=== PATIENT | male | born 1945 | race Caucasian/White ===

== ENCOUNTER 2021-12-02 13:34 | Outpatient (CLI) | payer MEDICARE, SELFPAY ==
--- NOTE | 2021-12-02 14:53 | ECG_ITS ---
Measurements Intervals [place] Rate: 65 P: 39 [place]: 176 QRS: -7 QRSD: 90 T: 50 QT: 374 QTc: 390 Interpretive Statements SINUS RHYTHM NO PREVIOUS ECG AVAILABLE FOR COMPARISON Electronically Signed On 12-02-2021 19:38:37 CDT by Suzanna Mcginnis M.D.
[2021-12-02 15:21] LABS: Basophils Absolute Auto 0.1 K/mm3 (0.0-0.1); Basophils Percent Auto 0.5 % (0.2-1.2); Eosinophils Absolute Auto 0.1 K/mm3 (0-0.3); Eosinophils Percent Auto 0.8 % (0-4.4); Hematocrit 48.5 % (42.0-52.0); Immature Granulocyte Absolute 0.05 K/mm3 (0.00-0.031); Immature Granulocyte Percent A 0.5 % (0-0.5); Lymphocytes Absolute Auto 1.37 K/mm3 (0.9-3.2); Lymphocytes Percent Auto 14.2 % (18.3-44.2); Mean Corpuscular Hemoglobin 28.8 pg (26-34); Mean Corpuscular Volume 87.2 fl (80-100); Mean Platelet Volume 9.2 fl (7.4-10.4); Monocytes Absolute Auto 0.7 K/mm3 (0.1-0.6); Monocytes Percent Auto 7.6 % (2.6-8.5); Neutrophils Absolute Auto 7.4 K/mm3 (1.3-6.7); Neutrophils Percent Auto 76.4 % (45.5-73.1); Platelet Count Result 211 k/mm3 (150-375); Red Blood Count 5.56 M/mm3 (4.6-6.20); White Blood Count 9.6 K/mm3 (4.5-10.0)
[2021-12-02 15:24] LABS: Appearance Urine Clear (Clear); Bilirubin Urine Negative (Negative); Blood Urine Negative (Negative); Color Urine Yellow (Yellow); Glucose Urine UA Negative (Negative); Ketones Urine Negative (Negative); Leukocyte Esterase Ur Negative LEU/UL (Negative); Nitrate Urine Negative (Negative); Protein Urine Negative (Negative); Specific Grav Ur 1.025 (1.001-1.035); Urobilinogen Urine 0.2 mg/dL (<2.0); pH Urine 5.5 (5.0-9.0)
[2021-12-02 15:25] LABS: Albumin Level 4.6 g/dL (3.5-5.1); Anion Gap 4 mmol/L (8-16); Blood Urea Nitrogen 15 mg/dL (9-20); Calcium 9.1 mg/dL (8.4-10.2); Carbon Dioxide 28 mmol/L (22-30); Chloride 105 mmol/L (98-107); Estimated Glomerular Filt Rate > 60; Glucose 120 mg/dL (65-110); Potassium 3.6 mmol/L (3.4-5.0); Sodium 137 mmol/L (137-145)
[2021-12-02 15:28] LABS: Urine Cotinine NEGATIVE
[2021-12-02 15:29] LABS: Hemoglobin A1C 5.2 % (<5.7)
[2021-12-02 15:31] LABS: Mucus Urine Rare /lpf; RBC Urine 0-2 /hpf (0-2); Squamous Epithelial Cell Urine Rare /hpf (Few); WBC Urine 0-3 /hpf
[2021-12-02 15:40] LABS: Partial Thromboplastin Time 28.9 SECONDS (22.3-36.8)
[2021-12-02 15:42] LABS: Add Urine Microscopic? NO
== END 2021-12-02 13:35 | disposition home or self-care (01) ==
PROVIDERS: PCP Internal Medicine; Visit Provider Orthopaedic Surgery
DX: Z01.818 Encounter for other preprocedural examination (principal); M17.11 Unilateral primary osteoarthritis, right knee
CPT/HCPCS: 80048; 80307; 81003; 82040; 83036; 85025; 85610; 85730; 87081; 93005

== ENCOUNTER 2021-12-17 15:53 | Observation (INO) | payer MEDICARE, SELFPAY ==
[2021-12-02 14:00] VITALS: BMI 28.4
--- NOTE | 2021-12-02 14:19 | PC.NURSE ---
Report to the Outpatient Waiting Room, entrance under the green pavilion located off [facility], at time __9:30AM on date ___12/16/21____. OR Time: _11:30AM . - You and your visitor will be asked a series of questions to screen for COVID 19 for your protection. - Only one visitor is allowed at this time. - The patient visitor is requested to leave or wait in car when not with patient. - A mask is required within the hospital. Patients may have clear liquids (water, carbonated beverages, clear teas, apple juice) until 3 hours prior to surgery with a maximum of 20 ounces. - No food from midnight until time of surgery Take the following medications with a SIP of water the morning of surgery: NIFEDIPINE Medications to discontinue per physician __HOLD ASPIRIN AND ALL VITAMINS/SUPPLEMENTS 7 DAYS PRE-OP- LAST DOSE 12/09/21 NO make-up, nail bermudian, hairspray, perfume, deodorant, or body powder the day of surgery. No jewelry (including any body piercings) or valuables the day of surgery, leave them at home. Please take a shower or bath the night before, or the morning of, surgery with an antibacterial soap. Wear comfortable, loose fitting clothing. Children are encouraged to wear pajamas. - Jewelry must be removed prior to entering the operating room. Rings and piercings that are not removed may be cut off. - The hospital will not accept responsibility for valuables. - Please leave all valuables, including medications, at home the day of surgery. HIBICLENS SHOWER 3 DAILY FOR 3 DAYS PRIOR TO SURGERY. If you are going home after surgery, a licensed vibratory pile driver must drive you home. - NO public transportation without another adult. - We recommend that an adult stay with you for 24 hours following discharge. - We also recommend that you do not drive, make important decision, drink alcoholic beverages, or take any drugs that were not prescribed by your health care provider for at least 24 hours after your discharge time. Follow any additional instructions given to you from your surgeon. If you or anyone in your household have experienced Covid symptoms in the past week, please notify your surgeon or the nurse liaison at the phone number below for possible testing. Telephone instructions given to ___PATIENT and asked if any additional questions and then verbalized understanding. Patient advised to call surgeon office or pre surgery nurse liaison [phone] if any additional questions.
[2021-12-02 14:54] VITALS: BP 166/72; PULSE 76; RESP 16; TEMP 37.4; O2SAT 97
[2021-12-16] VITALS (11 sets, daily range): BP systolic 130–156; BP diastolic 67–89; PULSE 54–73; RESP 14–20; TEMP 36.2–37.1; O2SAT 94–100
--- NOTE | 2021-12-16 08:21 | WPDHPUPDATE1 ---
History and Physical Update Update Date/Time: 12/16/21 08:21 History and Physical has been reviewed, including an updated exam of the patient. There are NO changes in the patient's condition. Risks, benefits, and alternatives have been discussed and questions answered. Patient agrees to proceed with procedure.
--- NOTE | 2021-12-16 08:22 | WPDHPUPDATE1 ---
History and Physical Update Update Date/Time: 12/16/21 08:22 History and Physical has been reviewed, including an updated exam of the patient. There are NO changes in the patient's condition. Risks, benefits, and alternatives have been discussed and questions answered. Patient agrees to proceed with procedure.
--- NOTE | 2021-12-16 08:59 | P.PNAN_ITS ---
Anes - Initial Pre Proc Eval Procedure: Operation Date: 12/16/21 11:30 Proposed Procedures p Right Total Knee Arthroplasty, Right Wrist DeQuervains Injection - Mk Alba MD Date/Time: 12/16/21 08:59 Surgeon: Mk Alba MD Pre Op Diagnosis: Rt Knee DJD, Rt Wrist Dequervains,Tenosynovitis Patient Data Age: 76 Gender: M Height: 1.7 m Weight: 82.4 kg Last Vital Signs Temp 37.4 C 12/02/21 14:54 Pulse 76 12/02/21 14:54 Resp 16 12/02/21 14:54 BP 166/72 H 12/02/21 14:54 Pulse Ox 97 12/02/21 14:54 O2 Del Method Room Air 12/02/21 14:54 Allergies Allergy/AdvReac Type Severity Reaction Status Date / Time No Known Allergies Allergy Verified 12/16/21 09:51 Home Medications Medication Instructions Recorded Confirmed Type aspirin 81 mg tablet,delayed 81 mg PO DAILY 11/17/21 12/16/21 History release (Adult Aspirin Regimen) cholecalciferol (vitamin D3) 50 50 mcg PO DAILY 11/17/21 12/16/21 History mcg (2,000 unit) capsule hydrochlorothiazide 12.5 mg tablet 12.5 mg PO QAM 11/17/21 12/16/21 History nifedipine 90 mg tablet,extended 90 mg PO QAM 11/17/21 12/16/21 History release omega-3s 350 xk-oct-ygd-fish 1 cap PO DAILY 11/17/21 12/16/21 History oil-D3 1,000 unit capsule ([place]-3 Plus D3) pravastatin 40 mg tablet 40 mg PO QHS 11/17/21 12/16/21 History quinapril 20 mg tablet 20 mg PO QAM 11/17/21 12/16/21 History Patient hx anesthesia problems: none Family hx anesthesia problems: none Results Review: All pre-operative results and documents have been reviewed as part of the pre- operative evaluation. [facility] Past Medical History Medical History (Updated 11/18/21 @ 11:42 by Mk Alba MD) High cholesterol HTN (hypertension) Social History Social History (Updated 12/16/21 @ 10:51 by Seven J. Luchtefeld, DO) Smoking status: Never smoker Alcohol intake: current Drinks per week: 14 Alcohol use details: 1-2 drinks/day Substance use: never Living arrangements: alone Gender identity (if verbalized by the patient): Male Spiritual care concerns: No Anes - Eval Final PreProcedure Day of Procedure 12/16/21 08:59 Patient weight: overweight Heart: regular rate and rhythm Lungs: clear to auscultation Airway: Mallampati scale class II Neurological: alert and oriented Last oral intake: >/= 8 hours ASA classification: III Emergent: no Anesthetic plan: proceed Anesthesia type and monitoring: general LMA and standard monitoring Results Review: All pre-operative results and documents have been reviewed as part of the pre-op erative evaluation. Informed Consent: The patient's anesthetic plan and its attendant risks and benefits were discussed with the patient/family/POA. Questions were solicited and answers provided to the satisfaction of the patient/family/POA.
--- NOTE | 2021-12-16 09:03 | WPDANESPNB ---
Anes - Peripheral Nerve Block Date/Time: 12/16/21 09:03 I have discussed with the patient/family/POA the placement of a peripheral nerve block for post-operative pain management, including associated risks, benefits, complications, and side effects. Alternative methods of post-operative analgesia were detailed. Questions were solicited and answers provided to the satisfaction of the patient/family/POA. Time-Out: A pre-procedural Time-Out was completed immediately before starting the procedure and confirmed: Patient Identification, Site, Procedure, Patient Position and the Availability of Requisite Equipment. Clinical Indications: Acute post-operative pain management requested by the operative surgeon. Nerve Block Insertion Note Anes-nerve block: adductor canal right Patient position: supine Skin prep: chlorhexidine Needle: 22 gauge, stimulating, insulated echogenic needle. Needle length: 80 mm Technique: ultrasound Injectate: bupivacaine 0.5% with epi 5 mcg/ml (30cc - no epi) Observations: tolerated well Complications: none Procedure start time:: 112 Procedure end time:: 1127
[2021-12-16] MEDS: LACTATED RINGERS 1,000 ML 30 ML IV CONT ×2 (10:16→14:50)
[2021-12-16] MEDS: ACETAMINOPHEN 500 MG TABLET 1000 MG PO (10:16)
[2021-12-16] MEDS: TRANEXAMIC ACID 1,000MG/ISO100 1,000 MG/100 ML BAG 200 MG IVPB (10:17)
--- NOTE | 2021-12-16 11:14 | WPDHPUPDATE1 ---
History and Physical Update Update Date/Time: 12/16/21 11:14 History and Physical has been reviewed, including an updated exam of the patient. There are NO changes in the patient's condition. Risks, benefits, and alternatives have been discussed and questions answered. Patient agrees to proceed with procedure. WE WILL INJECT THE RIGHT WRIST FOR DEQUERVAINS TENOSYNOVITIS
[2021-12-16] MEDS: ceFAZolin 2 GM/D5W 50 ML 2 GM/50 ML BAG IVPB ×2 (12:07→19:50)
[2021-12-16] MEDS: GENTAMICIN BONE CEMENT REFOBACIN 1 EACH TOPICAL (13:16)
[2021-12-16] MEDS: methylPREDNISolone ACETATE 80 MG/ML VIAL IM (13:43)
--- NOTE | 2021-12-16 15:10 | W.PM.PROC2 ---
Procedure Note - Detailed Date of Procedure 12/16/21 Pre-op Diagnosis Rt Knee DJD, Rt Wrist Dequervains,Tenosynovitis Post-op Diagnosis Same Procedure Performed R TKA, RIGHT WRIST INJECTION Surgeon Mk Alba MD Anesthesia General Description of Procedure THE RIGHT KNEE WAS PREPPED AND DRAPED IN THE STERILE FASHION. THERE WAS A 10 DEGREE FLEXION CONTRACTURE. A MIDLINE SKIN INCISION WAS MADE. A MEDIAL PARAPATELLAR ARTHROTOMY WAS MADE. THE PATELLA WAS EVERTED. THERE WAS TRICOMPARTMENT DJD. THERE WAS MINIMAL PATELLA DJD. AN INTRAMEDULLARY ULISES WAS PLACED IN THE FEMUR. A DISTAL FEMORAL CUT WAS MADE IN 5 DEGREES OF VALGUS REMOVING APPROXIMATELY 9 MM OF BONE FROM THE DISTAL FEMUR. THE FEMUR WAS SIZED TO 65. A 65 FEMORAL CUTTING BLOCK WAS PLACED IN 3 DEGREES OF EXTERNAL ROTATION AND IN ALIGNMENT WITH ADY'S LINE AND THE TRANSEPICONDYLAR AXIS. ANTERIOR POSTERIOR AND CHAMFER CUTS WERE MADE. THE CUTS WERE EXCELLENT. NEXT AN INTRAMEDULLARY CUTTING GUIDE WAS PLACED IN THE TIBIA. A TRANS TIBIAL CUT WAS MADE ALONG THE LONG AXIS OF THE TIBIA. APPROXIMATELY 10 MM OF BONE WAS REMOVED FROM THE HIGH SIDE OF THE TIBIA. THE TIBIA WAS THEN PLANED TO A SMOOTH SURFACE. POSTERIOR FEMORAL OSTEOPHYTES WERE REMOVED FROM THE FEMORAL CONDYLES. A 75 TIBIAL TRIAL WAS PLACED IN ALIGNMENT WITH THE 1/3 MEDIAL ASPECT OF THE TIBIAL TUBERCLE. THEN A 65 FEMORAL TRIAL COMPONENT WAS PLACED. BOTH HAD EXCELLENT FITS. EVENTUALLY A 10 MM CR POLYETHYLENE TRIAL COMPONENT WAS PLACED. THE KNEE WAS TAKEN THROUGH A RANGE OF MOTION. LIGAMENT BALANCING WAS PREFORMED. THE KNEE CAME OUT TO FULL EXTENSION. THERE WAS NO ABNORMAL TILT TO THE PATELLA. THERE WAS GOOD A/P AND VARUS/VALGUS STABILITY. THERE WAS NO EXCESSIVE ROLL BACK WITH FLEXION. THE TRIAL COMPONENTS WERE REMOVED. THEN A 65 FEMORAL COMPONENT AND 75 TIBIAL COMPONENT WITH A 10 CR POLYETHYLENE COMPONENT WERE CEMENTED INTO PLACE. ONCE THE CEMENT WAS HARD THE KNEE WAS TAKEN THROUGH A ROM AGAIN AND FOUND TO BE STABLE WITH NO PATELLA TILT NO EXCESSIVE ROLL BACK WITH FLEXION AND GOOD STABILITY WITH COMPLETE AND FULL EXTENSION. THE KNEE WAS IRRIGATED WITH STERILE BETADINE AND WATER FOR ABOUT 3 MINUTES. THE BLEEDERS WERE CAUTERIZED. THE ARTHROTOMY WAS REPAIRED WITH NUMBER 1 VICRYL. THE SUB CUTANEOUS LAYER WITH 2-0 VICRYL AND THE SKIN WITH CLEM. THE WOUND WAS WASHED AND A STERILE DRESSING WAS APPLIED. NEXT THE RIGHT WRIST WAS PREPPED AND DEPO MEDROL 80 MG 1CC AND LIDOCAINE 1% [place] INJECTED IN TO THE 1ST DORSAL WRIST COMPARTMENT. A STERILE BAND AID WAS PLACED. PATIENT WAS EXTUBATED. Estimated Blood Loss -100.0 Pathology None sent Complications No immediate complications Condition Stable Disposition PACU
[2021-12-16] MEDS: fentaNYL CITRATE INJ (*CRX) 100 MCG/2 ML VIAL 25 MCG IV PUSH ×2 (15:21→15:36)
--- NOTE | 2021-12-16 16:08 | ADMGEN ---
This patient, Axel Lipscomb, was admitted to 2 Medical Room 260-. Patient/family oriented to hospital policies and general routines including ID bracelet, bed and alarms, visiting hours, pain management, procedures, bathroom and other care routines, personal items, smoking policy, room service/diet, and visiting hours. Information on how to activate the Rapid Response Team has been discussed. Patient/Family are encouraged to report perceived risks to care and to ask questions if they do not understand what they are told or what they should do.
[2021-12-16] MEDS: oxyCODONE/ACETAMINOPHEN (*CRX) 5-325 MG TABLET 2 TABLET PO (16:16)
[2021-12-16] MEDS: CELECOXIB 200 MG CAPSULE PO (16:38)
[2021-12-16] MEDS: SENNA/DOCUSATE SODIUM TABLET 2 TAB PO (16:39)
[2021-12-16] MEDS: ASPIRIN 81 MG ENTERIC TABLET PO (16:39)
[2021-12-16] MEDS: PRAVASTATIN SODIUM 20 MG TABLET 40 MG PO (19:50)
[2021-12-17] VITALS (7 sets, daily range): BP systolic 101–139; BP diastolic 58–66; PULSE 56–90; RESP 16–20; TEMP 35.9–36.8; O2SAT 97–100
--- NOTE | ~2021-12-17 | XR_ITS ---
EXAMINATION: XR knee RT 2V DATE: 12/16/2021 15:02 INDICATION: Postoperative evaluation following right total knee arthroplasty. TECHNIQUE: Anteroposterior and lateral views of the right knee were obtained. COMPARISON: 11/17/2021 FINDINGS: Right total knee arthroplasty without patellar resurfacing appears well seated and in near anatomic a lignment. No fractures identified. Skin mikki and expected postoperative subcutaneous, intramedul john and intra-articular gas. Vascular calcifications along the arteries of the distal thigh and prox imal lower leg. IMPRESSION: 1. Right total knee arthroplasty, negative for postoperative purposes. Reviewed, dictated and finalized at location B.
[2021-12-17] MEDS: ceFAZolin 2 GM/D5W 50 ML 2 GM/50 ML BAG IVPB ×2 (04:59→11:32)
[2021-12-17 05:41] LABS: Basophils Percent Auto 0.1 % (0.2-1.2); Eosinophils Percent Auto 0.1 % (0-4.4); Hematocrit 41.2 % (42.0-52.0); Hemoglobin 14.1 g/dL (14.0-18.0); Immature Granulocyte Percent A 0.7 % (0-0.5); Lymphocytes Absolute Auto 0.99 K/mm3 (0.9-3.2); Lymphocytes Percent Auto 6.7 % (18.3-44.2); Mean Corpuscular HGB Conc 34.2 g/dl (32-36); Mean Corpuscular Hemoglobin 29.3 pg (26-34); Mean Corpuscular Volume 85.7 fl (80-100); Mean Platelet Volume 9.6 fl (7.4-10.4); Monocytes Absolute Auto 1.2 K/mm3 (0.1-0.6); Monocytes Percent Auto 8.2 % (2.6-8.5); Neutrophils Absolute Auto 12.5 K/mm3 (1.3-6.7); Neutrophils Percent Auto 84.2 % (45.5-73.1); Platelet Count Result 180 k/mm3 (150-375); Red Blood Count 4.81 M/mm3 (4.6-6.20); Red Cell Distribution Width 14.6 % (11.5-14.5); White Blood Count 14.9 K/mm3 (4.5-10.0)
[2021-12-17 05:52] LABS: Anion Gap 7 mmol/L (8-16); Blood Urea Nitrogen 14 mg/dL (9-20); Calcium 8.6 mg/dL (8.4-10.2); Carbon Dioxide 25 mmol/L (22-30); Chloride 106 mmol/L (98-107); Estimated CRCL calculation 63 ml/min; Estimated Glomerular Filt Rate > 60; Glucose 115 mg/dL (65-110); Sodium 138 mmol/L (137-145)
--- NOTE | 2021-12-17 07:32 | PM.PNORT ---
Progress Note: A&P Assessment and Plan (1) Right knee DJD: Code(s): M17.11 - Unilateral primary osteoarthritis, right knee Status: Acute Assessment and Plan: POD 1 DOING WELL. HE STILL NEEDS ANOTHER DAY OF PT. HE WILL BE DISCHARGED TMRW AFTER HIS MORNING PT.. HE WILL F/U IN 3 WEEKS Plan POD 1 DOING WELL. HE NEEDS ANOTHER DAY OF PT. OK TO DC HOME AFTER PT TMRW. F/U IN 3 WEEKS Subjective Subjective Date/Time Seen: 12/17/21 07:32 POD 1 DOING WELL. PAIN CONTROLLED. NO CALF PAIN Exam Extrem: Other: VSS AFEBRILE DRESSING DRY NV INTACT NEG HOMANS SIGN CALF SOFT NON TENDER Objective Data Vital Signs Vital Signs: Vital Signs - 24 hr 12/16/21 09:42 12/16/21 14:50 12/16/21 15:05 Temperature 36.6 C 37.1 C Pulse Rate 72 62 62 Respiratory Rate 18 14 14 Blood Pressure 156/68 H 146/79 H 142/80 H Pulse Oximetry 99 98 98 Oxygen Delivery Room Air Simple Face Mask Simple Face Mask Oxygen Flow Rate 6 6 12/16/21 15:20 12/16/21 15:35 12/16/21 15:50 Temperature Pulse Rate 70 73 65 Respiratory Rate 16 18 14 Blood Pressure 154/89 H 150/82 H 139/77 Pulse Oximetry 96 97 94 Oxygen Delivery Room Air Room Air Room Air Oxygen Flow Rate 12/16/21 16:20 12/16/21 16:35 12/16/21 17:05 Temperature 36.4 C 36.4 C 36.6 C Pulse Rate 70 70 73 Respiratory Rate 16 16 16 Blood Pressure 156/77 H 144/76 H 154/67 H Pulse Oximetry 97 100 97 Oxygen Delivery Oxygen Flow Rate 12/16/21 18:05 12/16/21 20:19 12/17/21 00:32 Temperature 36.2 C L 36.6 C 35.9 C L Pulse Rate 60 54 L 62 Respiratory Rate 18 20 18 Blood Pressure 130/68 149/67 H 130/58 L Pulse Oximetry 99 100 99 Oxygen Delivery Oxygen Flow Rate 12/17/21 03:47 12/17/21 03:00 Temperature 36.6 C Pulse Rate 56 L 56 L Respiratory Rate 20 20 Blood Pressure 139/62 Pulse Oximetry 100 100 Oxygen Delivery Room Air Oxygen Flow Rate Intake/Output Intake/Output: Intake & Output 12/14/21 12/15/21 12/16/21 12/17/21 23:59 23:59 23:59 23:59 Intake Total 690 290 Output Total 100 900 Balance 590 -610 Meds/Results Medications: Active Medications Generic Name Dose Route Start Last Admin Trade Name Freq PRN Reason Stop Dose Admin Acetaminophen 1,000 mg 12/16/21 15:57 Acetaminophen 500 Mg Tablet PO Q6H PRN Pain Rated 1-3 Aspirin 81 mg 12/16/21 17:00 12/16/21 16:39 Aspirin 81 Mg Enteric Tablet PO 81 mg BID ERIC Administration Celecoxib 200 mg 12/16/21 17:00 12/16/21 16:38 Celecoxib 200 Mg Capsule PO 200 mg BIDWM ERIC Administration Diazepam 5 mg 12/16/21 15:57 Diazepam (*Crx) 5 Mg Tablet PO Q8H PRN Spasms Hydrochlorothiazide 12.5 mg 12/17/21 09:00 Hydrochlorothiazide 12.5 Mg Capsule PO QAM [facility] Cefazolin Sodium 2 gm in 50 mls @ 100 mls/hr 12/16/21 20:00 12/17/21 04:59 Ancef 2 Gm/D5w 50 Ml IVPB 12/17/21 12:29 100 mls/hr Q8H ERIC Administration Lisinopril 20 mg 12/17/21 09:00 Lisinopril 20 Mg Tablet PO 01/16/22 08:59 QAM [facility] Naloxone HCl 0.1 mg 12/16/21 15:57 Naloxone Hcl 0.4 Mg/Ml Vial IV PUSH Q2M PRN Opiate Reversal Nifedipine 90 mg 12/17/21 09:00 Nifedipine 30 Mg Tab.Er.24 PO QAM [facility] Ondansetron HCl 4 mg 12/16/21 15:57 Ondansetron Inj 4 Mg/2 Ml Vial IV PUSH Q4H PRN Nausea And Vomiting Oxycodone/Acetaminophen 1 tablet 12/16/21 15:57 Oxycodone/Acetaminophen (*Crx) 5-325 Mg Tablet PO Q4H PRN Pain Rated 4-6 Oxycodone/Acetaminophen 2 tablet 12/16/21 15:57 12/16/21 16:16 Oxycodone/Acetaminophen (*Crx) 5-325 Mg Tablet PO 2 tablet Q6H PRN Administration Pain Rated 7-10 Polyethylene Glycol 17 gm 07/13/22 09:00 Polyethylene Glycol 3350 17 Gm Powd.Pack PO QAM ERIC Pravastatin Sodium 40 mg 12/16/21 21:00 12/16/21 19:50 Pravastatin Sodium 20 Mg Tablet PO 40 mg QHS [facility] Administration Senna/Docusate Sodium 2 tab 12/16/21 17:00 12/16/21
[2021-12-17] MEDS: CHOLECALCIFEROL 1,000 UNITS TABLET 2000 UNITS PO (08:06)
[2021-12-17] MEDS: CELECOXIB 200 MG CAPSULE PO ×2 (08:06→17:27)
[2021-12-17] MEDS: NIFEdipine 30 MG TAB.ER.24 90 MG PO (08:07)
[2021-12-17] MEDS: oxyCODONE/ACETAMINOPHEN (*CRX) 5-325 MG TABLET 1 TABLET PO ×2 (08:07→12:18)
[2021-12-17] MEDS: polyethylene glycoL 3350 17 GM POWD.PACK PO (08:08)
[2021-12-17] MEDS: SENNA/DOCUSATE SODIUM TABLET 2 TAB PO ×2 (08:08→17:27)
[2021-12-17] MEDS: lisinopriL 20 MG TABLET PO (08:08)
[2021-12-17] MEDS: hydroCHLOROthiazide 12.5 MG CAPSULE PO (08:08)
[2021-12-17] MEDS: ASPIRIN 81 MG ENTERIC TABLET PO ×2 (09:00→17:27)
--- NOTE | 2021-12-17 09:06 | WPDANESPN ---
Anes - Prog Note Post-Op Date/Time: 12/17/21 09:06 Vital Signs: Last Vital Signs Temp 36.6 C 12/17/21 03:47 Pulse 56 L 12/17/21 03:47 Resp 20 12/17/21 03:47 BP 139/62 12/17/21 03:47 Pulse Ox 100 12/17/21 03:47 O2 Del Method Room Air 12/17/21 08:05 O2 Flow Rate 6 12/16/21 15:05 Pain Score (VAS): 0 I/O: Intake & Output 12/16/21 12/17/21 12/17/21 23:59 07:59 15:59 Intake Total 290 340 Output Total 100 900 Balance 190 -560 Laboratory Tests 12/17/21 05:29 12/17/21 05:29 12/16/21 12/17/21 12/17/21 10:08 05:29 05:29 WBC 14.9 H RBC 4.81 Hgb 14.1 Hct 41.2 L MCV 85.7 MCH 29.3 MCHC 34.2 RDW 14.6 H Plt Count 180 MPV 9.6 Immature Gran % (Auto) 0.7 H Neut % (Auto) 84.2 H Lymph % (Auto) 6.7 L [place] % (Auto) 8.2 Eos % (Auto) 0.1 Baso % (Auto) 0.1 L Lymph # (Auto) 0.99 [place] # (Auto) 1.2 H Eos # (Auto) 0.0 Baso # (Auto) 0.0 Abs Immat Gran (auto) 0.10 H Absolute Neuts (auto) 12.5 H Absolute Nucleated RBC 0.0 Nucleated RBC % 0.0 Sodium 138 Potassium 4.0 Chloride 106 Carbon Dioxide 25 Anion Gap 7 L BUN 14 Creatinine 0.80 Estim Creat Clear Calc 63 Estimated GFR > 60 Glucose 115 H Calcium 8.6 Blood Type O Positive Antibody Screen Negative Patient Feedback: Patient satisfied with anesthetic care.
--- NOTE | 2021-12-17 12:11 | PM.DS ---
DS: Admitting Diagnosis Discharge Date 12/18/21 Admitting Diagnosis RIGHT KNEE DJD DS: Discharge Diagnosis Discharge Diagnosis (1) Right knee DJD: Code(s): M17.11 - Unilateral primary osteoarthritis, right knee Status: Acute DS: Summary Hospital Course Reason for hospitalization: R TKA Hospital Course: PATIENT WAS ADMITTED S/P RIGHT TOTAL KNEE ARTHROPLASTY FOR POSTOPERATIVE MEDICAL MANAGEMENT, PAIN CONTROL AND MOBILIZATION WITH PHYSICAL AND OCCUPATIONAL THERAPY. THE PATIENT PROGRESSED WELL WITH PT/OT. LABS AND VITALS REMAINED STABLE AND PAIN WELL CONTROLLED. THE PATIENT HAS BEEN CLEARED TO BE DISCHARGED HOME. FOLLOW UP APPOINTMENT SCHEDULED. DISCHARGE INSTRUCTIONS DISCUSSED AT LENGTH WITH THE PATIENT. MEDICATIONS REVIEWED. Status at Discharge Cognitive/behavioral status at discharge: STABLE Time Spent with Patient Time attestation: Total time spent providing and/or coordinating discharge services: 15 MIN DS: Data Data Completed and Pending Labs on day of discharge: Labs from last 24 hours 12/17/21 12/17/21 12/16/21 05:29 05:29 10:08 WBC 14.9 H RBC 4.81 Hgb 14.1 Hct 41.2 L MCV 85.7 MCH 29.3 MCHC 34.2 RDW 14.6 H Plt Count 180 MPV 9.6 Immature Gran % (Auto) 0.7 H Neut % (Auto) 84.2 H Lymph % (Auto) 6.7 L [place] % (Auto) 8.2 Eos % (Auto) 0.1 Baso % (Auto) 0.1 L Lymph # (Auto) 0.99 [place] # (Auto) 1.2 H Eos # (Auto) 0.0 Baso # (Auto) 0.0 Abs Immat Gran (auto) 0.10 H Absolute Neuts (auto) 12.5 H Absolute Nucleated RBC 0.0 Nucleated RBC % 0.0 Sodium 138 Potassium 4.0 Chloride 106 Carbon Dioxide 25 Anion Gap 7 L BUN 14 Creatinine 0.80 Estim Creat Clear Calc 63 Estimated GFR > 60 Glucose 115 H Calcium 8.6 Antibody Screen Negative Discharge Plan Discharge Patient Disposition: Home Health Service Discharge Instructions: Care Coordination: patient to have [facility] for PT/OT eval and treat, and intermediate. They can be contacted at [phone] and will call you to schedule their first visit. MICHELLE ALBA M.D. [facility] [address] [place] [address] [address] [place] [address] POST OPERATIVE DISCHARGE INSTRUCTIONS FOLLOWING TOTAL KNEE REPLACEMENT SURGERY ? Your dressing will be changed prior to your discharge. You will be sent home with one additional dressing to be changed on post op day 7 by the home health RN. Your mikki will be removed on the 14th day after surgery and steri-strips will be placed. Please practice good hand hygiene and do not touch your incision in order to prevent infection. ? You may shower with your dressing but do not submerge in a bath tub. ? Do not drive or operate machinery until you are released by Dr. Alba. ? Do not walk without a walker for any reason until you are released by Dr. Alba. ? Continue to use your ice machine. Please use a towel or pillow case to protect your skin before applying your ice machine. ? Do NOT place a pillow under your knee. You may use a pillow from the calf down if needed. This will prevent a flexion contracture postoperatively. ? You may begin use of your CPM machine at home if you have been given one pre-operatively. DO NOT USE WHILE YOU ARE SLEEPING. ? Your first post op appointment was sent to you via mail preoperatively. If you have any questions or are unable to make your appointment, please contact our office for scheduling questions. ? Your medications have been sent to your pharmacy. You have been sent home with pain medication. We have also sent you with a stool softener as narcotics can cause constipation. Please keep this in mind during your postoperative recovery. If you are not experiencing regular bowel movements, please contact our office for further instruction. ? Please contact our office with any questions/concerns regarding your kn
[2021-12-17] MEDS: PRAVASTATIN SODIUM 20 MG TABLET 40 MG PO (20:48)
[2021-12-18 01:00] VITALS: PULSE 90; RESP 18; O2SAT 100
[2021-12-18] MEDS: oxyCODONE/ACETAMINOPHEN (*CRX) 5-325 MG TABLET 1 TABLET PO ×4 (04:41→14:29)
[2021-12-18] MEDS: ACETAMINOPHEN 500 MG TABLET 1000 MG PO ×2 (06:37→12:48)
[2021-12-18] MEDS: CELECOXIB 200 MG CAPSULE PO (07:53)
[2021-12-18] MEDS: CHOLECALCIFEROL 1,000 UNITS TABLET 2000 UNITS PO (07:53)
[2021-12-18] MEDS: lisinopriL 20 MG TABLET PO (07:53)
[2021-12-18] MEDS: hydroCHLOROthiazide 12.5 MG CAPSULE PO (07:53)
[2021-12-18] MEDS: SENNA/DOCUSATE SODIUM TABLET 2 TAB PO (07:54)
[2021-12-18] MEDS: NIFEdipine 30 MG TAB.ER.24 90 MG PO (07:54)
[2021-12-18] MEDS: ASPIRIN 81 MG ENTERIC TABLET PO (08:28)
--- NOTE | 2021-12-18 10:01 | PM.PNORT ---
Progress Note: A&P Assessment and Plan (1) S/P total knee arthroplasty: Code(s): Z96.659 - Presence of unspecified artificial knee joint Status: Acute Assessment and Plan: POD #2 : R TKA Continue PT/OT. WBAT. Walker. HIGH FALL RISK. Continue pain control. Ice knee. Protect skin. DVT prophylaxis with Aspirin. SCDs. Incentive Spirometry Use reviewed. Monitor Dressing. Change prior to discharge. Bowel Regimen. Dispo: Home with Home Health pending progress with PT/OT Subjective Subjective Date/Time Seen: 12/18/21 10:01 Post Op day: 2 (Right TKA ) Interval history: POD #1: Right TKA Patient doing well. Mild increase in pain. Well controlled with medication. No new concerns. Hopeful for discharge home today. Review of Systems Review of Systems: All systems reviewed & are unremarkable except as noted in HPI and below Constitutional: Constitutional: Denies fever(s) and Denies headache(s) ENT: Denies headache(s) Cardiovascular: Cardiovascular: Denies chest pain, Denies diaphoresis, Denies palpitations and Denies dyspnea Respiratory: Respiratory: Denies dyspnea Gastrointestinal: Gastrointestinal: Denies abdominal pain, Denies constipation, Denies nausea and Denies vomiting Genitourinary: Genitourinary: Denies dysuria and Reports nocturia Musculoskeletal: Musculoskeletal: Reports arthralgias (Right Knee ) and Reports joint swelling (Right Knee ) Neurologic: Denies headache(s) Endocrine: Endocrine: Denies palpitations Exam Const: General: comfortable and no acute distress Resp: Effort & Inspection: normal respiratory effort Cardio: Rate: regular rate Rhythm: regular rhythm GI: GI Palp: Yes Soft to palpation, No Tenderness to palpation present (GI) and No Guarding due to palpation present (GI) Skin: Wounds: wounds noted Other: Incision c/d/i. No surrounding redness/warmth. No hematoma. Mild ecchymosis. No wound dehiscence Neuro: Cognition (Neuro): normal cognition Other: NV intact aside from block. Moves toes. Sensation intact to light touch. +ankle dorsiflexion/plantarflexion. Extrem: Right lower extremity: normal to inspection, knee Details: tenderness (diffuse, mild ) Location: of the patella, swelling (diffuse, consistent with surgical intervention ), abnormal ROM Details: pain with active ROM during, pain with passive ROM during and with range as follows (limited due to recent surgical intervention ); able to extend lower leg actively and ecchymosis (mild ), lower leg (Negative Costa's Sign ) Details: normal to inspection; no erythema and no tenderness, ankle (+ankle dorsiflexion/plantarflexion ) Details: normal to inspection, no edema and normal ROM; no tenderness, no swelling and no ecchymosis and foot Details: normal capillary refill, normal to inspection, vascular exam Details: dorsalis pedis pulse present and motor-sensory exam Details: light-touch normal; no tenderness Left lower extremity: normal to inspection Psych: Mental Status: mental status grossly normal Objective Data Vital Signs Vital Signs: Vital Signs - 24 hr 12/17/21 10:10 12/17/21 14:22 12/17/21 18:10 Temperature 36.8 C 36.8 C 36.3 C L Pulse Rate 68 62 70 Respiratory Rate 16 18 18 Blood Pressure 134/64 101/58 L 127/62 Pulse Oximetry 97 100 100 Oxygen Delivery 12/17/21 23:59 12/18/21 01:00 Temperature 36.7 C Pulse Rate 90 90 Respiratory Rate 18 18 Blood Pressure 130/66 Pulse Oximetry 100 100 Oxygen Delivery Room Air Intake/Output Intake/Output: Intake & Output 12/15/21 12/16/21 12/17/21 12/18/21 23:59 23:59 23:59 23:59 Intake Total 690 1110 360 Output Total 100 1000 500 Balance 590 110 -140 Meds/Results Medications: Active Medications Generic Name Dose Route Start Last Admin Trade Name Freq PRN Reason Stop Dose Admin Acetaminophen 1,000 mg 12/16/21 15:57 12/18/21 06:37 Acetaminophen 500 Mg Tablet PO 1,000 mg Q6H PRN Administration Pain Rate
[2021-12-18 10:17] VITALS: BP 126/61; PULSE 83; RESP 16; TEMP 36.7; O2SAT 100
--- NOTE | 2021-12-18 13:44 | PCPTNOTE ---
Attempted to see patient for PT at this time, however patient declined due to anticipated discharge.
--- NOTE | 2021-12-18 15:38 | PCCCNOTE ---
On 12/18/21, the student, Gabriella Mccarthy, provided care and completed [facility] documentation on this patient. I have reviewed the student's documentation and agree with the findings.
--- NOTE | 2021-12-18 17:27 | PC.NURSE ---
There were computer problems with this discharge that involved several members of the IT team and the providers. We were unable to get the discharge to go through the proper way. A summary of the discharge was printed and provided to pt. I reviewed discharge instructions, meds and aspirin dose changes in detail with pt and his daughter in law. IT made aware of status and they have sent a service ticket to [employer] to try to resolve the issue. Provider is aware of situation as well. Nurse's station direct line provided for their reference should they have any questions
== END 2021-12-18 15:25 | disposition home health service (06) ==
LOC: ANHSURGERY 16:01 → ANH2MED 16:01
PROVIDERS: Admitting Provider Orthopaedic Surgery; PCP Internal Medicine; Visit Provider Orthopaedic Surgery
PROC: (CPT 27447; principal; 2021-12-16 11:30)
DX: M17.11 Unilateral primary osteoarthritis, right knee (principal); M65.4 Radial styloid tenosynovitis [de Quervain]; E78.00 Pure hypercholesterolemia, unspecified; I10 Essential (primary) hypertension; Z79.82 Long term (current) use of aspirin; Z79.899 Other long term (current) drug therapy; Z79.891 Long term (current) use of opiate analgesic
CPT/HCPCS: 27447; 20605; 36415; 73560; 80048; 85025; 86850; 86900; 86901; 97110; 97116; 97161; 97165; 97530; 97535; A9270; C1713; C1776; G0378; J0171; J0690; J1040; J1100; J1170; J1885; J2270; J2405; J2704; J2795; J3010; J7120

== ENCOUNTER 2022-12-31 11:45 | Outpatient (CLI) | payer MEDICARE, SELFPAY ==
--- NOTE | 2022-12-31 12:46 | ECG_ITS ---
Measurements Intervals [place] Rate: 60 P: 21 AL: 165 QRS: 29 QRSD: 116 T: 43 QT: 405 QTc: 405 Interpretive Statements SINUS RHYTHM INTRAVENTRICULAR CONDUCTION DELAY DELAYED PRECORDIAL R/S TRANSITION CONSIDER INFERIOR INFARCT, AGE INDETERMINATE BASELINE ARTIFACT- I, II, III, AVR, AVL, AVF, V1-V6 ABNORMAL ECG COMPARED TO ECG 12/02/2021 15:11:36 NO SIGNIFICANT CHANGES Electronically Signed On 12-31-2022 13:37:54 CDT by Huseyin Hirsch D.O.
[2022-12-31 13:19] LABS: Basophils Percent Auto 0.5 % (0.2-1.2); Eosinophils Absolute Auto 0.1 K/mm3 (0-0.3); Eosinophils Percent Auto 0.6 % (0-4.4); Hemoglobin 15.5 g/dL (14.0-18.0); Immature Granulocyte Absolute 0.03 K/mm3 (0.00-0.031); Immature Granulocyte Percent A 0.4 % (0-0.5); Lymphocytes Percent Auto 13.8 % (18.3-44.2); Mean Corpuscular HGB Conc 32.3 g/dl (32-36); Mean Corpuscular Hemoglobin 28.8 pg (26-34); Mean Corpuscular Volume 89.2 fl (80-100); Mean Platelet Volume 9.3 fl (7.4-10.4); Monocytes Absolute Auto 0.8 K/mm3 (0.1-0.6); Monocytes Percent Auto 9.4 % (2.6-8.5); Neutrophils Percent Auto 75.3 % (45.5-73.1); Platelet Count Result 192 k/mm3 (150-375); Red Blood Count 5.38 M/mm3 (4.6-6.20); Red Cell Distribution Width 15.3 % (11.5-14.5)
[2022-12-31 13:21] LABS: Appearance Urine Clear (Clear); Bilirubin Urine Negative (Negative); Blood Urine Negative (Negative); Color Urine Yellow (Yellow); Glucose Urine UA Negative (Negative); Ketones Urine Trace mg/dL (Negative); Leukocyte Esterase Ur Negative LEU/UL (Negative); Nitrate Urine Negative (Negative); Protein Urine Negative (Negative); Specific Grav Ur 1.028 (1.001-1.035); Urobilinogen Urine 0.2 mg/dL (<2.0)
[2022-12-31 13:26] LABS: Add Urine Microscopic? NO
[2022-12-31 13:34] LABS: Albumin Level 4.7 g/dL (3.5-5.1); Anion Gap 7 mmol/L (8-16); Blood Urea Nitrogen 19 mg/dL (9-20); Calcium 9.4 mg/dL (8.4-10.2); Carbon Dioxide 28 mmol/L (22-30); Chloride 99 mmol/L (98-107); Estimated Glomerular Filt Rate > 60; Glucose 91 mg/dL (65-110); Potassium 3.8 mmol/L (3.4-5.0); Sodium 134 mmol/L (137-145)
[2022-12-31 13:38] LABS: INR 0.9
[2022-12-31 13:39] LABS: Partial Thromboplastin Time 29.4 SECONDS (22.3-36.8)
[2022-12-31 17:16] LABS: Urine Cotinine NEGATIVE
[2023-01-01 10:40] LABS: Hemoglobin A1C 5.3 % (<5.7)
== END 2022-12-31 11:46 | disposition home or self-care (01) ==
LOC: ANHSURGERY 11:50
PROVIDERS: PCP Family Medicine; Visit Provider Orthopaedic Surgery
DX: Z01.812 Encounter for preprocedural laboratory examination (principal); Z01.810 Encounter for preprocedural cardiovascular examination; M16.11 Unilateral primary osteoarthritis, right hip; I45.9 Conduction disorder, unspecified; R94.31 Abnormal electrocardiogram [ECG] [EKG]
CPT/HCPCS: 36415; 80048; 80307; 81003; 82040; 83036; 85025; 85610; 85730; 86850; 86900; 86901; 87081; 93005

== ENCOUNTER 2023-01-12 00:26 | Day surgery (SDC) | payer MEDICARE, SELFPAY ==
[2022-12-31 12:07] VITALS: BP 127/76; PULSE 70; RESP 16; TEMP 36.9; O2SAT 100; BMI 26.7
--- NOTE | 2022-12-31 12:20 | PC.NURSE ---
Report to the Outpatient Waiting Room, entrance under the green pavilion located off [facility], at time __6:00AM on date __01/12/23 . Planned Procedure Time: __7:30AM . Time changes happen often and if your time is changed the preop area will call you the afternoon before. - You and your visitor will be asked to self-screen and do not enter if you have any COVID symptoms. - A mask is optional within the hospital at this time. Patients may have clear liquids (water, carbonated beverages, clear teas, apple juice) until 3 hours prior to surgery with a maximum of 20 ounces. - No food from midnight until time of surgery Take the following medications with a SIP of water the morning of surgery: ___NIFEDIPINE DO NOT STOP ANY OF YOUR OTHER PRESCRIPTION MEDICATIONS PRIOR TO SURGERY ?EXCEPT THE FOLLOWING Medications to discontinue per physician ___HOLD ASPIRIN, VOLTAREN CREAM AND VITAMINS/SUPPLEMENTS 7 DAYS PRE-OP PER DR OCHOA (PER PATIENT)__ Date to take last dose___01/05/23 Please no make-up, nail mongolian, hairspray, perfume, deodorant, or body powder the day of surgery. No jewelry (including any body piercings) or valuables the day of surgery, leave them at home. Please take a shower or bath the night before, or the morning of, surgery with an antibacterial soap. Wear comfortable, loose fitting clothing. Children are encouraged to wear pajamas. - Jewelry must be removed prior to entering the operating room. Rings and piercings that are not removed may be cut off. - The hospital will not accept responsibility for valuables. - Please leave all valuables, including medications, at home the day of surgery. If you are going home after surgery, a licensed straddle bug driver must drive you home. - NO public transportation without another adult if you receive anesthesia. - We recommend that an adult stay with you for 24 hours following discharge. - We also recommend that you do not drive, make important decision, drink alcoholic beverages, or take any drugs that were not prescribed by your health care provider for at least 24 hours after your discharge time. Follow any additional instructions given to you from your surgeon. HIBICLENS SHOWER PER DR OCHOA If you or anyone in your household have experienced Covid symptoms in the past week, please notify your surgeon or the nurse liaison at the phone number below for possible testing. Telephone instructions given to _PATIENT & [id number] cel asked if any additional questions and then verbalized understanding. Patient advised to call surgeon office or pre surgery nurse liaison [phone] if any additional questions.
--- NOTE | 2023-01-11 13:10 | WPDANESEPPF ---
Anes - Initial Pre Proc Eval Procedure: Operation Date: 01/12/23 07:30 Proposed Procedures p Right Total Hip Arthroplasty - Mk Alba MD Date/Time: 01/11/23 13:10 Surgeon: Mk Alba MD Pre Op Diagnosis: right hip DJD Patient Data Age: 77 Gender: M Height: 1.73 m Weight: 79.8 kg Last Vital Signs Temp 98.4 F 12/31/22 12:07 Pulse 70 12/31/22 12:07 Resp 16 12/31/22 12:07 BP 127/76 12/31/22 12:07 Pulse Ox 100 12/31/22 12:07 O2 Del Method Room Air 12/31/22 12:07 Allergies Allergy/AdvReac Type Severity Reaction Status Date / Time No Known Allergies Allergy Verified 01/12/23 06:47 Home Medications Medication Instructions Recorded Confirmed Type cholecalciferol (vitamin D3) 50 50 mcg PO DAILY 11/17/21 01/12/23 History mcg (2,000 unit) capsule omega-3s 350 gf-fqk-dcd-fish 1 cap PO DAILY 11/17/21 01/12/23 History oil-D3 1,000 unit capsule ([place]-3 Plus D3) aspirin 81 mg tablet,delayed 81 mg PO BID 28 days #56 tabs 12/18/21 01/12/23 Rx release (Adult Aspirin Regimen) chlorhexidine gluconate 4 % 1 applic topical ONCE #237 mL 12/30/22 12/31/22 Rx topical liquid (Hibiclens) acetaminophen 650 mg 1,300 mg PO Q12H PRN Pain 12/31/22 12/31/22 History tablet,extended release diclofenac sodium 1 % topical gel 4 g topical QID PRN Pain 12/31/22 01/12/23 History (Voltaren Arthritis Pain) hydrochlorothiazide 12.5 mg tablet 12.5 mg PO QAM 12/31/22 12/31/22 History lisinopril 20 mg tablet 20 mg PO QAM 12/31/22 12/31/22 History nifedipine 90 mg tablet,extended 90 mg PO QAM 12/31/22 01/12/23 History release pravastatin 40 mg tablet 40 mg PO HS 12/31/22 12/31/22 History Patient hx anesthesia problems: none Family hx anesthesia problems: none Results Review: All pre-operative results and documents have been reviewed as part of the pre-operative evaluation. [facility] Past Medical History Medical History (Updated 12/29/22 @ 08:32 by Ron Toth MD) High cholesterol HTN (hypertension) Preoperative clearance Surgical History Surgical History S/P total knee arthroplasty Social History Social History Smoking status: Never smoker Second hand tobacco smoke exposure: No Alcohol intake: current Drinks per week: 14 Alcohol use details: 1-2 drinks/day Substance use: never Substance use type: does not use Lack of Transportation: No Lack of Food: Never True Current Housing: I Have Housing Concerned About Future Housing: No Difficulty Paying Gas/Electric Bills: No Difficulty Paying for Meds: No Currently Unemployed: No Education: High School Diploma/GED Difficulty w/ Childcare or Family Care: No Living arrangements: alone Occupation/Education: retired Gender identity (if verbalized by the patient): Male Sexual Orientation (if Verbalized by the Patient): Straight or Heterosexual Spiritual care concerns: No Anes - Eval Final PreProcedure Day of Procedure 01/11/23 13:10 Patient weight: normal Heart: regular rate and rhythm Lungs: clear to auscultation Airway: Mallampati scale class III (upper caps) Neurological: alert and oriented Last oral intake: >/= 8 hours ASA classification: III Emergent: no Anesthetic plan: proceed Anesthesia type and monitoring: general ETT and standard monitoring Results Review: All pre-operative results and documents have been reviewed as part of the pre-operative evaluation. Informed Consent: The patient's anesthetic plan and its attendant risks and benefits were discussed with the patient/family/POA. Questions were solicited and answers provided to the satisfaction of the patient/family/POA.
[2023-01-12] VITALS (12 sets, daily range): BP systolic 105–139; BP diastolic 46–79; PULSE 44–78; RESP 12–18; TEMP 36.2–36.8; O2SAT 94–100; BMI 25.9
--- NOTE | ~2023-01-12 | XR_ITS ---
Right Hip Technique: AP and lateral views Clinical History: Status post hip arthroplasty Findings: Patient is status post right hip arthroplasty. Orthopedic hardware alignment appears anatom ic. No hardware complication is evident. Subcutaneous emphysema and swelling is likely postoperative in nature. No acute osseous fracture is seen. Impression: Status post total right hip arthroplasty, without evidence of hardware complication. Reviewed, dictated and finalized at location . Impression: Status post total right hip arthroplasty, without evidence of hardware complica tion.
[2023-01-12] MEDS: LACTATED RINGERS 1,000 ML 30 ML IV CONT ×3 (06:35→10:16)
[2023-01-12] MEDS: ACETAMINOPHEN 500 MG TABLET 1000 MG PO (06:44)
[2023-01-12] MEDS: TRANEXAMIC ACID 1,000MG/ISO100 1,000 MG/100 ML BAG 200 MG IVPB (06:59)
--- NOTE | 2023-01-12 07:23 | WPDHPUPDATE1 ---
History and Physical Update Update Date/Time: 01/12/23 07:23 History and Physical has been reviewed, including an updated exam of the patient. There are NO changes in the patient's condition. Risks, benefits, and alternatives have been discussed and questions answered. Patient agrees to proceed with procedure.
[2023-01-12] MEDS: ceFAZolin 2 GM/D5W 50 ML 2 GM/50 ML BAG IVPB ×3 (07:29→22:35)
[2023-01-12] MEDS: VANCOMYCIN HCL 1,000 MG VIAL 1000 MG TOPICAL (09:30)
[2023-01-12] MEDS: TRANEXAMIC ACID 1,000 MG/10 ML AMPUL 1000 MG IV PUSH (09:36)
--- NOTE | 2023-01-12 10:09 | W.PM.PROC2 ---
Procedure Note - Detailed Date of Procedure 01/12/23 Pre-op Diagnosis right hip DJD Post-op Diagnosis Same Procedure Performed R GERALDO Surgeon Mk Alba MD Anesthesia General Description of Procedure THE PATIENT WAS TAKEN TO THE OPERATING ROOM IN STABLE CONDITION AND WAS PLACED IN THE LATERAL DECUBITUS AND THE RIGHT LOWER EXTREMITY WAS PREPPED AND DRAPED IN THE STERILE FASHION. INCISION WAS MADE IN THE POSTERIOR LATERAL SIDE OF THE HIP, DOWN TO THE FASCIA LAYER. THE FASCIA WAS INCISED. THE HIP WAS EXPOSED. THE SHORT EXTERNAL ROTATORS WERE EXPOSED. THE SCIATIC NERVE WAS IDENTIFIED. INCISION WAS MADE THROUGH THE SHORT EXTERNAL ROTATORS AND THE CAPSULE OF THE HIP JOINT. THE HIP WAS DISLOCATED. AN OSTEOTOMY WAS MADE TO THE FEMORAL NECK ABOUT 1 CM PROXIMAL TO THE LESSER TROCHANTER. THE ACETABULUM WAS EXPOSED. THERE WAS SEVERE DJD SEEN. BEGINNING WITH A 44 REAMER THE ACETABULUM WAS REAMED TO 55 MM. A 55 MM TRIAL WAS PLACED IN 35 DEG OF ABDUCTION AND ANTEVERSION WAS IN ALIGNMENT WITH THE TRANS ACETABULAR LIGAMENT. THE FIT WAS EXCELLENT. THE TRIAL WAS REMOVED. A 56 MM BIOMET G7 COMPONENT WAS THEN TAPPED IN TO PLACE IN 35 DEG OF ABDUCTION AND ANTEVERSION IN ALIGNMENT WITH THE TRANSVERSE ACETABULAR LIGAMENT. THE FIT WAS EXCELLENT. 3 SCREWS WERE USED TO SECURE THE COMPONENT AND HAD EXCELLENT BITES. THE ACETABULAR LINER WAS PLACED AND CHECKED FOR STABILITY. NEXT THE FEMUR WAS PREPARED WITH INITIAL CANAL FINDER THEN SEQUENTIAL BROACHING WITH A TAPERLOC HIP SYSTEM, UNTIL A 11 BROACH FIT WELL IN 15 OF ANTEVERSION. A 0 STANDARD OFFSET NECK WITH 36 MM HEAD TRIAL WAS PLACED. THE SHUCK TEST WAS EXCELLENT AND THE STABILITY IN FLEXION AND ROTATION WAS EXCELLENT. LEG LENGTHS WERE GROSSLY EQUAL. TRIALS WERE REMOVED. A BIOMET TAPERLOC 11 STEM WAS PLACED WITH A HIGH OFFSET NECK. THE FIT WAS EXCELLENT IN 15 DEG OF ANTEVERSION. A +3 CERAMIC 36 MM FEMORAL HEAD WAS PLACED. THE HIP WAS TRIALED AND THE STABILITY WAS EXCELLENT WERE THE LEG LENGTHS AND THE SHUCK TEST. THE WOUND WAS IRRIGATED WITH VANCOMYCIN POWDER AND WATER FOR 3 MIN. THE SCIATIC NERVE WAS IDENTIFIED AGAIN. THE CAPSULE AND THE EXTERNAL ROTATORS WERE APPROXIMATED WITH NUMBER 1 VICRYL. THE FASCIA WITH No 2 QUIL AND THE SUB CUTANEOUS LAYER WITH 2-0 ABSORBABLE SUTURE AND A RUNNING 3-0 SUBCUTICULAR STITCH FOR THE SKIN. DERMABOND WAS PLACED AND STERILE DRESSING WAS APPLIED. PATIENT WAS PLACED BACK ON TO THE SUPINE POSITION AND WAS EXTUBATED Estimated Blood Loss 750 Complications No immediate complications Condition Stable Disposition PACU
[2023-01-12] MEDS: fentaNYL CITRATE INJ (*CRX) 100 MCG/2 ML VIAL 25 MCG IV PUSH ×4 (10:42→11:10)
--- NOTE | 2023-01-12 11:53 | ADMGEN ---
This patient, Axel Lipscomb, was admitted to Medical Room [facility] at 1130 . Patient/family oriented to hospital policies and general routines including ID bracelet, bed and alarms, visiting hours, pain management, procedures, bathroom and other care routines, personal items, smoking policy, room service/diet, and visiting hours. Information on how to activate the Rapid Response Team has been discussed. Patient/Family are encouraged to report perceived risks to care and to ask questions if they do not understand what they are told or what they should do.
[2023-01-12] MEDS: HYDROcodone/acetaminophen (*CRX) 7.5-325 MG TABLET 1 TAB PO ×3 (13:05→20:06)
[2023-01-12] MEDS: SENNA/DOCUSATE SODIUM TABLET 2 TAB PO (17:06)
[2023-01-12] MEDS: ASPIRIN 81 MG ENTERIC TABLET PO (17:07)
[2023-01-12] MEDS: PRAVASTATIN SODIUM 20 MG TABLET 40 MG PO (20:05)
[2023-01-12] MEDS: FAMOTIDINE 20 MG TABLET PO (20:05)
[2023-01-12] MEDS: HYDROcodone/acetaminophen (*CRX) 7.5-325 MG TABLET 2 TAB PO (23:02)
[2023-01-13 05:31] VITALS: BP 118/61; PULSE 70; RESP 14; TEMP 37.2; O2SAT 97
[2023-01-13 05:48] LABS: Basophils Percent Auto 0.2 % (0.2-1.2); Eosinophils Percent Auto 0.1 % (0-4.4); Hematocrit 33.9 % (42.0-52.0); Hemoglobin 11.1 g/dL (14.0-18.0); Immature Granulocyte Absolute 0.03 K/mm3 (0.00-0.031); Immature Granulocyte Percent A 0.3 % (0-0.5); Lymphocytes Absolute Auto 1.03 K/mm3 (0.9-3.2); Lymphocytes Percent Auto 11.8 % (18.3-44.2); Mean Corpuscular HGB Conc 32.7 g/dl (32-36); Mean Corpuscular Hemoglobin 29.3 pg (26-34); Mean Corpuscular Volume 89.4 fl (80-100); Mean Platelet Volume 9.5 fl (7.4-10.4); Monocytes Percent Auto 11.6 % (2.6-8.5); Neutrophils Absolute Auto 6.6 K/mm3 (1.3-6.7); Platelet Count Result 146 k/mm3 (150-375); Red Blood Count 3.79 M/mm3 (4.6-6.20); Red Cell Distribution Width 15.3 % (11.5-14.5); White Blood Count 8.7 K/mm3 (4.5-10.0)
[2023-01-13 05:57] LABS: Potassium 3.5 mmol/L (3.4-5.0)
[2023-01-13 06:04] LABS: Anion Gap 1 mmol/L (8-16); Blood Urea Nitrogen 18 mg/dL (9-20); Calcium 7.9 mg/dL (8.4-10.2); Carbon Dioxide 26 mmol/L (22-30); Chloride 102 mmol/L (98-107); Estimated CRCL calculation 57 ml/min; Estimated Glomerular Filt Rate > 60; Glucose 114 mg/dL (65-110); Sodium 129 mmol/L (137-145)
[2023-01-13] MEDS: ceFAZolin 2 GM/D5W 50 ML 2 GM/50 ML BAG IVPB (06:24)
[2023-01-13] MEDS: HYDROcodone/acetaminophen (*CRX) 7.5-325 MG TABLET 2 TAB PO ×2 (06:28→17:33)
[2023-01-13] MEDS: CELECOXIB 200 MG CAPSULE PO (08:39)
[2023-01-13] MEDS: FAMOTIDINE 20 MG TABLET PO (08:39)
[2023-01-13] MEDS: polyethylene glycoL 3350 17 GM POWD.PACK PO (08:39)
[2023-01-13] MEDS: NIFEdipine 30 MG TAB.ER.24 90 MG PO (08:39)
[2023-01-13] MEDS: CHOLECALCIFEROL 1,000 UNITS TABLET 2000 UNITS PO (08:39)
[2023-01-13] MEDS: lisinopriL 20 MG TABLET PO (08:39)
[2023-01-13] MEDS: ASPIRIN 81 MG ENTERIC TABLET PO (08:39)
[2023-01-13] MEDS: hydroCHLOROthiazide 12.5 MG CAPSULE PO (08:39)
[2023-01-13] MEDS: SENNA/DOCUSATE SODIUM TABLET 2 TAB PO (08:39)
--- NOTE | 2023-01-13 10:56 | WPDANESPN ---
Anes - Prog Note Post-Op Date/Time: 01/13/23 10:56 Cardiovascular status: normal Respiratory status: normal Airway patency: baseline Mental status: baseline Post-Op hydration status: normal Vital Signs: Last Vital Signs Temp 98.9 F 01/13/23 05:31 Pulse 70 01/13/23 05:31 Resp 14 01/13/23 05:31 BP 118/61 01/13/23 05:31 Pulse Ox 97 01/13/23 05:31 O2 Del Method Room Air 01/13/23 08:40 O2 Flow Rate 6 01/12/23 10:30 Pain Score (VAS): 5-6 resting, 8-9 with therapy I/O: Intake & Output 01/12/23 01/13/23 01/13/23 23:59 07:59 15:59 Intake Total 530 50 240 Output Total 150 375 Balance 380 -325 240 Laboratory Tests 01/13/23 05:21 01/13/23 05:21 01/13/23 05:21 WBC 8.7 RBC 3.79 L Hgb 11.1 L D Hct 33.9 L MCV 89.4 MCH 29.3 MCHC 32.7 RDW 15.3 H Plt Count 146 L MPV 9.5 Immature Gran % (Auto) 0.3 Neut % (Auto) 76.0 H Lymph % (Auto) 11.8 L [place] % (Auto) 11.6 H Eos % (Auto) 0.1 Baso % (Auto) 0.2 Lymph # (Auto) 1.03 [place] # (Auto) 1.0 H Eos # (Auto) 0.0 Baso # (Auto) 0.0 Abs Immat Gran (auto) 0.03 Absolute Neuts (auto) 6.6 Absolute Nucleated RBC 0.0 Nucleated RBC % 0.0 Sodium 129 L Potassium 3.5 Chloride 102 Carbon Dioxide 26 Anion Gap 1 L BUN 18 Creatinine 0.90 Estim Creat Clear Calc 57 Estimated GFR > 60 Glucose 114 H Calcium 7.9 L Post-procedural complaints: none Patient Feedback: Patient satisfied with anesthetic care.
[2023-01-13 14:00] VITALS: BP 110/56; PULSE 78; RESP 14; TEMP 37; O2SAT 99
--- NOTE | 2023-01-13 16:47 | PM.DS ---
DS: Admitting Diagnosis Discharge Date 01/13/23 Admitting Diagnosis RIGHT HIP DJD DS: Discharge Diagnosis Discharge Diagnosis (1) Degenerative joint disease (DJD) of hip: Qualifiers: Laterality: right Osteoarthritis type: primary Qualified Code(s): M16.11 - Unilateral primary osteoarthritis, right hip Code(s): M16.9 - Osteoarthritis of hip, unspecified Status: Acute Plan DC HOME F/U IN 3 WEEKS DS: Summary Hospital Course Reason for hospitalization: RIGHT GERALDO Hospital Course: PATIENT WAS ADMITTED S/P TOTAL HIP ARTHROPLASTY FOR POSTOPERATIVE MEDICAL MANAGEMENT, PAIN CONTROL AND MOBILIZATION WITH PHYSICAL AND OCCUPATIONAL THERAPY. THE PATIENT PROGRESSED WELL WITH PT/OT. LABS AND VITALS REMAINED STABLE AND PAIN WELL CONTROLLED. THE PATIENT HAS BEEN CLEARED TO BE DISCHARGED HOME. FOLLOW UP APPOINTMENT SCHEDULED. DISCHARGE INSTRUCTIONS DISCUSSED AT LENGTH WITH THE PATIENT. MEDICATIONS REVIEWED. Status at Discharge Cognitive/behavioral status at discharge: STABLE Functional status at discharge: uses cane/walker Time Spent with Patient Time attestation: Total time spent providing and/or coordinating discharge services: Exam Narrative: VSS AFEBRILE DRESSING DRY NV INTACT NEG HOMANS SIGN CALF AND THIGH SOFT DS: Data Data Completed and Pending Labs on day of discharge: Labs from last 24 hours 01/13/23 05:21 WBC 8.7 RBC 3.79 L Hgb 11.1 L D Hct 33.9 L MCV 89.4 MCH 29.3 MCHC 32.7 RDW 15.3 H Plt Count 146 L MPV 9.5 Immature Gran % (Auto) 0.3 Neut % (Auto) 76.0 H Lymph % (Auto) 11.8 L [place] % (Auto) 11.6 H Eos % (Auto) 0.1 Baso % (Auto) 0.2 Lymph # (Auto) 1.03 [place] # (Auto) 1.0 H Eos # (Auto) 0.0 Baso # (Auto) 0.0 Abs Immat Gran (auto) 0.03 Absolute Neuts (auto) 6.6 Absolute Nucleated RBC 0.0 Nucleated RBC % 0.0 Sodium 129 L Potassium 3.5 Chloride 102 Carbon Dioxide 26 Anion Gap 1 L BUN 18 Creatinine 0.90 Estim Creat Clear Calc 57 Estimated GFR > 60 Glucose 114 H Calcium 7.9 L Procedures/Treatments: R GERALDO Discharge Plan Discharge Patient Disposition: Home, Self-Care Discharge Instructions: Per Care Coordination, pt. will return home with [facility] for continued PT/OT. [facility] will contact pt. at time of D/C. Follow-up/Referrals: Mk Alba MD [Physician] - 3 Weeks Discharge Medications: New oxycodone-acetaminophen [Percocet] 5-325 mg tablet 1 tablet PO Q6H PRN (Reason: pain) Qty: 30 0RF Continued cholecalciferol (vitamin D3) 50 mcg (2,000 unit) capsule 50 mcg PO DAILY [place]-3 Plus D3 350 mg- 1,000 unit capsule 1 cap PO DAILY aspirin [Adult Aspirin Regimen] 81 mg tablet,delayed release (DR/EC) 81 mg PO BID 28 Days Qty: 56 0RF pravastatin 40 mg tablet 40 mg PO HS Rx Instructions: TAKE 1 TABLET BY MOUTH EVERY DAY AT BEDTIME nifedipine 90 mg tablet extended release 90 mg PO QAM Rx Instructions: TAKE 1 TABLET BY MOUTH EVERY DAY IN THE MORNING lisinopril 20 mg tablet 20 mg PO QAM hydrochlorothiazide 12.5 mg tablet 12.5 mg PO QAM Rx Instructions: TAKE 1 TABLET BY MOUTH IN THE MORNING acetaminophen 650 mg Tablet Extended Release 1,300 mg PO Q12H PRN (Reason: Pain) diclofenac sodium [Voltaren Arthritis Pain] 1 % Gel 4 g TOPICAL QID PRN (Reason: Pain) Rx Instructions: apply to single knee, ankle, foot; for foot includes sole/toes/top of foot chlorhexidine gluconate [Hibiclens] 4 % liquid 1 applic topical ONCE Qty: 237 0RF Rx Instructions: Cleanse operative extremity, in shower, every day for 3 days prior to surgical procedure.
== END 2023-01-13 17:45 | disposition home or self-care (01) ==
LOC: ANHSURGERY 06:00 → ANH3MED 11:18
PROVIDERS: PCP Family Medicine; Visit Provider Orthopaedic Surgery
PROC: (CPT 27130; principal; 2023-01-12 07:30)
DX: M16.11 Unilateral primary osteoarthritis, right hip (principal); I10 Essential (primary) hypertension; E78.00 Pure hypercholesterolemia, unspecified; Z79.82 Long term (current) use of aspirin
CPT/HCPCS: 27130; 36415; 73502; 80048; 85025; 97110; 97116; 97161; 97165; 97530; 97535; A9270; C1776; J0171; J0690; J1100; J1170; J1885; J2250; J2270; J2405; J2704; J2795; J3010; J3370; J7120